=== PATIENT | female | born 2000 | race Caucasian/White ===

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

== ENCOUNTER 2022-02-08 17:47 | Emergency (ER) | payer OTHER ==
[~2022-02-08] VITALS: Ht 165.1 cm; Wt 94.3 kg
[2022-02-08 19:51] VITALS: BP 162/84; TEMP 99.1
== END 2022-02-08 19:51 | disposition home or self-care (01) ==
LOC: ED 17:47
DX: J02.9 Acute pharyngitis, unspecified (principal); J32.8 Other chronic sinusitis
CPT/HCPCS: 87651; 99283